=== PATIENT | female | born 1980 | race American Indian/Alaskan Native ===

== ENCOUNTER 2016-07-28 20:02 | Emergency (ER) | payer OTHER ==
[2016-07-28] MEDS ORDERED: TYLENOL ONE (22:02)
[2016-07-28] MEDS ORDERED: TYLENOL PO ONE (22:07)
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
[2016-07-29 00:17] VITALS: BP 111/75
[2016-07-29] MEDS ORDERED: BOOSTRIX IM ONE (01:47)
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
[2016-07-30] MEDS ORDERED: BOOSTRIX IM ONE (08:00)
== END 2016-07-29 02:53 | disposition home or self-care (01) ==
LOC: ED 20:02
DX: M54.2 Cervicalgia (principal); E11.9 Type 2 diabetes mellitus without complications; V87.7XXA Person injured in collision between other specified motor vehicles (traffic), initial encounter; Y93.89 Activity, other specified; Y99.9 Unspecified external cause status; Y92.410 Unspecified street and highway as the place of occurrence of the external cause
CPT/HCPCS: 72040; 72125; 81025; 90715

== ENCOUNTER 2017-04-06 11:22 | Emergency (ER) | payer SELFPAY ==
[2017-04-06 11:46] VITALS: BP 139/110
[2017-04-06 12:00] LABS: Basophils % (Auto) 0.4 % (0.0-1.8); Eosinophils % (Auto) 0.3 % (0.0-4.3); Hemoglobin 14.6 gm/dl (10.1-14.3); Lymphocytes # (Auto) 2.3 K/mm3 (1.2-5.4); Lymphocytes % (Auto) 33.6 % (13.4-35.0); Mean Corpuscular HGB Conc 33 % (30-34); Mean Corpuscular Hemoglobin 27 pg (28-32); Mean Corpuscular Volume 82 fl (79-97); Monocytes # (Auto) 0.7 K/mm3 (0.0-0.8); Monocytes % (Auto) 9.4 % (0.0-7.3); Platelet Count 313 K/mm3 (140-440); Red Blood Count 5.36 M/mm3 (3.65-5.03); Red Cell Distribution Width 13.9 % (13.2-15.2)
[2017-04-06 12:09] LABS: INR 0.98 (0.87-1.13)
[2017-04-06 12:10] LABS: Partial Thromboplastin Time 24.6 Sec. (24.2-36.6)
--- NOTE | 2017-04-06 12:22 | Cat Scan Report ---
CT HEAD WITHOUT CONTRAST: HISTORY: Neurological deficit. TECHNIQUE: Sequential 2.5mm CT images. COMPARISON: none. FINDINGS: Cerebral Parenchyma: Within normal limits. Cerebellum: Within normal limits. Brainstem: Within normal limits. Ventricles: Normal. Sella: Normal. Extra-axial spaces: Normal. Basal Cisterns: Normal. Intracranial Hemorrhage: None. Midline Shift: None. Calvarium: Normal. Sinuses: Normal. Mastoid Air Cells: Normal. Visualized Orbits: Normal. IMPRESSION: Cranial CT scan within normal limits.
[2017-04-06 12:27] LABS: BUN/Creatinine Ratio 13; Blood Urea Nitrogen 10 mg/dL (7-17); Calcium 8.8 mg/dL (8.4-10.2); Hemolysis Index 7
== END 2017-04-07 | disposition left against medical advice (07) ==
LOC: ED 11:22
DX: R53.1 Weakness (principal); Z53.21 Procedure and treatment not carried out due to patient leaving prior to being seen by health care provider
CPT/HCPCS: 36415; 70450; 80048; 84484; 85025; 85610; 85670; 85730; 93005; 93010

== ENCOUNTER 2019-05-02 18:10 | Emergency (ER) | payer MEDICAID ==
[2019-05-02] MEDS ORDERED: SODIUM CHLORIDE 0.9% 1000 ML 1,000 ML IV ONE (19:39)
[2019-05-02] MEDS ORDERED: LACTATED RINGERS 1,000 ML IV ONE (19:39)
[2019-05-02] MEDS ORDERED: ASPIRIN 325 MG TAB PO ONE (19:45)
--- NOTE | 2019-05-02 19:46 | Event Note ---
ED Screening Note Date of service: 05/02/19 Time: 19:42 ED Screening Note: 38 yo AA female with a h/o NIDDM and who is not on any medications presented to the ED with c/o headache, diffuse chills, chest pain, body aches and generalized weakness for 8 hours. Patient states that she was diagnosed with UTI and hypergolycemia at [facility] ED and discharged home on Ciprofloxacin and Metformin but that she is yet to pick these medications. In triage, patient is alert and oriented x 3, hyperglycemic and tachycardic but in no acute distress. This initial assessment/diagnostic orders/clinical plan/treatment(s) is/are subject to change based on patients health status, clinical progression and re- assessment by fellow clinical providers in the ED. Further treatment and workup at subsequent clinical providers discretion. Patient/guardian urged not to elope from the ED as their condition may be serious if not clinically assessed and managed. Initial orders include: cbc, cmp, ekg, ua, hcg serum, NS, LR, chest x-ray, troponin
[2019-05-02 20:18] LABS: Basophils # (Auto) 0.1 K/mm3 (0.0-0.1); Basophils % (Auto) 0.4 % (0.0-1.8); Eosinophils % (Auto) 0.1 % (0.0-4.3); Hematocrit 39.9 % (30.3-42.9); Hemoglobin 13.5 gm/dl (10.1-14.3); Lymphocytes # (Auto) 0.7 K/mm3 (1.2-5.4); Lymphocytes % (Auto) 4.3 % (13.4-35.0); Mean Corpuscular HGB Conc 34 % (30-34); Mean Corpuscular Volume 83 fl (79-97); Monocytes # (Auto) 1.2 K/mm3 (0.0-0.8); Monocytes % (Auto) 7.6 % (0.0-7.3); Platelet Count 268 K/mm3 (140-440); Red Blood Count 4.81 M/mm3 (3.65-5.03); Red Cell Distribution Width 13.1 % (13.2-15.2)
[2019-05-02 20:18] LABS: Bilirubin,Urine NEG (Negative); Blood,Urine LG (Negative); Color,Urine Yellow (Yellow); Urobilinogen,Urine < 2.0 mg/dL (<2.0)
[2019-05-02 20:19] LABS: WBC,Urine > 182.0 /HPF (0.0-6.0)
[2019-05-02 20:41] LABS: Alanine Aminotransferase 19 units/L (7-56); Albumin 3.6 g/dL (3.9-5); BUN/Creatinine Ratio 15; Blood Urea Nitrogen 9 mg/dL (7-17); Calcium 9.1 mg/dL (8.4-10.2); Hemolysis Index 1
--- NOTE | 2019-05-02 21:47 | XRay Report ---
CHEST 1 VIEW INDICATION / CLINICAL INFORMATION: chest pain. COMPARISON: None available. FINDINGS: SUPPORT DEVICES: None. HEART / MEDIASTINUM: No significant abnormality. LUNGS / PLEURA: No significant pulmonary or pleural abnormality. No pneumothorax. ADDITIONAL FINDINGS: No significant additional findings. IMPRESSION: 1. No acute findings. Signer Name: Joseph Shaffer MD Signed: 05/02/2019 9:42 PM Workstation Name: [id number][id number]
[2019-05-02] MEDS ORDERED: levoFLOXacin 750 MG TAB PO ONE (23:15)
[2019-05-02] MEDS ORDERED: cefTRIAXone/NS 1 GM/50 ML 1 GM/50 ML BAG IV ONE (23:18)
[2019-05-02] MEDS ORDERED: LACTATED RINGERS 1,000 ML ONE (23:34)
[2019-05-02] MEDS ORDERED: SODIUM CHLORIDE 0.9% 1000 ML 1,000 ML ONE (23:34)
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
[2019-05-03] MEDS ORDERED: IBUPROFEN 800 MG TAB PO ONE (00:56)
[2019-05-03] MEDS ORDERED: IBUPROFEN 800 MG TAB ONE (00:58)
[2019-05-03 01:29] VITALS: BP 110/64
[2019-05-03] MEDS ORDERED: SODIUM CHLORIDE 0.9% 1000 ML 1,000 ML IV ONE (01:29)
[2019-05-03] MEDS ORDERED: INSULIN REGULAR, HUMAN 100 UNITS/1 ML IV ONE (01:29)
== END 2019-05-03 03:09 | disposition home or self-care (01) ==
LOC: ED 18:10
DX: N39.0 Urinary tract infection, site not specified (principal); E11.65 Type 2 diabetes mellitus with hyperglycemia; G44.209 Tension-type headache, unspecified, not intractable; Z98.890 Other specified postprocedural states; Z79.1 Long term (current) use of non-steroidal anti-inflammatories (NSAID); Z79.899 Other long term (current) drug therapy; Z88.0 Allergy status to penicillin
CPT/HCPCS: 36415; 71045; 80053; 81001; 82140; 82962; 84484; 84703; 85025; 93005; 93010; 96361; 96365; 96375; 99284; J0696; J7030; J7120; J1815